=== PATIENT | male | born 1970 | race Caucasian/White ===

== ENCOUNTER 2017-03-02 15:22 | Emergency (ER) | payer OTHER ==
[~2017-03-02] VITALS: Ht 172.7 cm; Wt 93.2 kg
[2017-03-02 16:55] VITALS: BP 167/100
[2017-03-02] MEDS ORDERED: IBUP-1022 PO (16:55)
--- NOTE | 2017-03-03 08:38 | REP ---
LEFT KNEE, FIVE VIEWS: HISTORY: Injury. There is no acute fracture or dislocation. The joint spaces are normal in appearance. IMPRESSION: There is no acute fracture or dislocation. Signed by Timbo Eubanks MD 03/03/2017 08:50 A
[2017-04-16] MEDS ORDERED: ATEN50TA2 PO (11:06)
[2017-04-16] MEDS ORDERED: ATOR1TAB21 PO (11:06)
[2017-04-16] MEDS ORDERED: LISI-538 PO (11:06)
== END 2017-03-02 17:09 | disposition home or self-care (01) ==
LOC: M ED 15:22
DX: M23.92 Unspecified internal derangement of left knee (principal); X50.9XXA Other and unspecified overexertion or strenuous movements or postures, initial encounter; Y92.59 Other trade areas as the place of occurrence of the external cause; Y93.89 Activity, other specified; Y99.8 Other external cause status; F17.210 Nicotine dependence, cigarettes, uncomplicated

== ENCOUNTER 2017-04-23 09:17 | Day surgery (SDC) | payer OTHER ==
[~2017-04-23] VITALS: Ht 172.7 cm; Wt 85.3 kg
[~2017-04-23 09:17] MED LIST: ATEN50TA2 PO; ATOR1TAB21 PO; IBUP-1022 PO; LIDOCAINE 1% MDV 20ML VIAL SQ PRN; LISI-538 PO; LR 1,000 ML IV ONE
[2017-04-23] MEDS ORDERED: fentaNYL 100 MCG/2 ML INJECTION (J3010) As Ordered ONE (10:37)
[2017-04-23] MEDS ORDERED: MIDAZOLAM INJ 2 MG/2 ML VIAL (J2250) As Ordered ONE ×2 (10:37→11:32)
[2017-04-23] MEDS: fentaNYL 100 MCG/2 ML INJECTION (J3010) IV PRN ×6 (10:46→18:48)
[2017-04-23] MEDS: MIDAZOLAM INJ 2 MG/2 ML VIAL (J2250) IV PRN ×2 (10:46→10:55)
[2017-04-23] MEDS ORDERED: BUPIVACAINE HCL 0.5% 10 ML VIAL As Ordered ONE (11:09)
[2017-04-23] MEDS ORDERED: fentaNYL 250 MCG/5 ML INJECTION (J3010) As Ordered ONE (11:32)
[2017-04-23] MEDS ORDERED: DESFLURANE 240 ML INHALANT As Ordered ONE (13:06)
[2017-04-23] MEDS ORDERED: LIDOCAINE 2% INJ 100 MG/5 ML SDV (FOR ANES.) As Ordered ONE (13:06)
[2017-04-23] MEDS ORDERED: PROPOFOL 200 MG/20 ML VIAL As Ordered ONE (13:06)
[2017-04-23] MEDS ORDERED: ePHEDrine SULFATE 25 MG/5 ML(5MG/ML) SYRINGE As Ordered ONE (13:06)
[2017-04-23] MEDS ORDERED: METOCLOPRAMIDE INJ 10MG/2ML VIAL (J2765) As Ordered ONE (13:07)
[2017-04-23] MEDS ORDERED: NEOSTIGMINE 10 MG/10 ML VIAL (J2710) As Ordered ONE (13:07)
[2017-04-23] MEDS ORDERED: KETOROLAC 60 MG/2 ML VIAL (J1885) As Ordered ONE (13:07)
[2017-04-23] MEDS ORDERED: ONDANSETRON 4MG/2ML VIAL (J2405) As Ordered ONE (13:07)
[2017-04-23] MEDS ORDERED: GLYCOPYRROLATE INJ 0.2 MG/ML 2 ML VIAL As Ordered ONE (13:07)
[2017-04-23] MEDS ORDERED: HYDROmorphone HCL 2 MG/ML 1ML VIAL (J1170) As Ordered ONE (13:18)
[2017-04-23] MEDS ORDERED: ROCURONIUM BROMIDE 50 MG/5 ML VIAL As Ordered ONE (13:20)
[2017-04-23] MEDS ORDERED: dexameTHASONE 4 MG/ML 1ML VIAL (J1100) As Ordered ONE (15:12)
[2017-04-23] MEDS ORDERED: ceFAZolin 2 GM/D5W 50 ML IV BAG (J0690) As Ordered ONE (15:47)
[2017-04-23] MEDS ORDERED: ONDANSETRON 4MG/2ML VIAL (J2405) IV PRN (18:15)
[2017-04-23] MEDS ORDERED: LR 1,000 ML IV SCH (18:15)
[2017-04-23] MEDS ORDERED: MEPERIDINE INJ 25 MG/ML VIAL (J2175) IV PRN (18:15)
[2017-04-23] MEDS ORDERED: PERCOCET 5MG/325MG TAB PO PRN (18:15)
[2017-04-23] MEDS ORDERED: METOCLOPRAMIDE INJ 10MG/2ML VIAL (J2765) IV PRN (18:15)
--- NOTE | 2017-04-23 18:19 | REP ---
Left knee series: 26 views. History: Intraoperative radiographs. 22 seconds of fluoroscopy time is reported. Findings: A sequence of 26 last image hold fluoroscopic spot radiographs of the left knee document metallic anchor placement in the distal femur and proximal tibia medially. Signed by Sergo Peterson MD 04/23/2017 07:47 P
[2017-04-23] MEDS ORDERED: MORPHINE 15 MG SA TAB PO ONE (19:00)
[2017-04-23 20:20] VITALS: BP 161/90
--- NOTE | 2017-05-02 11:02 | RO ---
DATE OF PROCEDURE: 04/23/2017 PREOPERATIVE DIAGNOSES: 1. Left knee anterior cruciate ligament rupture. 2. Left knee medial collateral ligament tear. 3. Left knee possible medial meniscus tear. POSTOPERATIVE DIAGNOSES: 1. Left knee anterior cruciate ligament rupture. 2. Left knee medial collateral ligament tear, grade 3. PROCEDURE: 1. Left knee arthroscopy with arthroscopic-assisted anterior cruciate ligament reconstruction using bone-patellar tendon-bone autograft. 2. Left knee medial collateral ligament reconstruction using Achilles tendon allograft. SURGEON: Dr. James Parker CHARGE MASTER SPECIALIST: Dr. Yolanda Nair SECOND TABLE GAMES FLOOR SUPERVISOR: BINU Garcia ANESTHESIA: General with preoperative nerve block. INTRAVENOUS (IV) FLUIDS: Lactated Ringer's. ESTIMATED BLOOD LOSS: 100 mL. IMPLANTS: Arthrex 7 x 23 mm PEEK interference screw times one, 8 x 28 PEEK interference screw in the tibia times one, 7 x 23 mm PEEK interference screw in the medial femoral condyle, and a 20 mm Mitek spiked washer titanium and a 4.5 mm fully threaded cortical Synthes screw. CLOSURE: Nylon. 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 His exam was consistent with both a complete tear of the anterior cruciate ligament (ACL) and a grade 3 medial collateral ligament (MCL) tear. MRI confirmed those injuries and suggestive of a medial meniscus capsule separation. He was treated nonoperatively initially in a hinged knee brace to allow his MCL to try to heal in to avoid needing that fixed. Unfortunately, his MCL did not fully heal and he actually had grade 2+ laxity with laxity at 0 and 30 degrees 8 weeks out from injury. We had discussed multiple times surgery for this injury for ACL reconstruction, including graft options and fixation. We agreed to bone-patellar tendon-bone (BTB) autograft for the ACL and, if necessary, to reconstruct MCL and Achilles allograft. The risks and benefits of surgery were discussed, and consent was obtained. DESCRIPTION OF PROCEDURE: The patient was identified in the preoperative holding area and the left leg signed by myself. He had a preoperative nerve block by anesthesia. He was brought to the operating room and placed supine on a well-padded operating room (OR) table. General anesthesia induced without complication. Examination under anesthesia revealed range of motion from 0 to 135 degrees. He had laxity at 0 and 30 degrees with valgus stress with a poor end point at 30 degrees. He had a grade 2B Arabella. Pivot shift was deferred. Stable to varus stress, and negative posterior drawer. Bump was placed under the left hip, a sandbag taped to the end of the table. Post applied to the side of the OR table for arthroscopy, and a well-padded tourniquet applied to the thigh. He received appropriate IV antibiotics within 1 hour of incision. The left leg was then prepped and draped in a normal sterile fashion with the entire leg and toes prepped sterilely. Prior to incision, time-out was performed, in which myself and all OR staff confirmed the patient's name, medical record number, date of , and the correct side, site, and procedure. The left leg was exsanguinated with an Esmarch bandage and the tourniquet inflated to 250 mmHg. A longitudinal midline incision was made with a #15 blade from the distal fourth of the patella down past the tibial tubercle. Full-thickness flap down to the peritenon with a knife. Deep knife was used to create a rent in the peritenon, and then the peritenon was carefully elevated off of the patellar tendon to protect for later repair. The deep knife was used to harvest the central third of the patellar tendon with a roughly 10-11 mm width tendon. Bone blocks at the patella and tibia were harvested with the oscillating saw and osteotomes. Two drill holes placed in each bone block. Bone blocks were then sized on the back table, and excess bone was saved for later bone graft. FiberWire sutures were placed, two in each bone block. Graft was protected on the back table in a moist sponge. Dr. Nair was present for the entire procedure and participated in all essential portions of the procedure. Patellar tendon was closed with interrupted #0 Vicryl sutures with the knee in 40 degrees of flexion. I then proceeded with arthroscopy, lateral portal made with a #11 blade through the harvest incision, and diagnostic arthroscopy carried out. Minimal fraying of the patellar and trochlea and no significant degenerative change. No loose bodies. There was a complete rupture of the ACL with an empty notch sign. Medial and lateral compartments were then inspected, and there were no meniscus tears. The meniscus did not displace into the joint with suction. Intact chondral surfaces of both the medial and lateral compartments; no chondroplasty necessary. An anteromedial portal was made and, on probing, there were no meniscus tears. I then used the shaver to remove the torn ACL fibers, leaving some fibers on the femur and tibia to guide tunnel placement. An accessory anteromedial portal was created through the harvest incision to give the appropriate angle to drill for the femoral tunnel. An [id number] anteromedial guide was placed through the accessory medial portal, and the knee was hyperflexed. The guidewire was advanced out the lateral femoral condyle. The low profile 10 mm Leonardo reamer was used to drill a 25 mm socket over the guidewire. Suction was used to then remove all bony debris. There was a 1 mm back wall, and this tunnel was placed at the 2-o'clock position. Next, attention was turned to the tibial tunnel with the drill guide used to place a guidewire through the [place] fibers of the ACL 9 mm anterior to the intermeniscal ligament. A 10.5 mm Leonardo reamer was first used, then a 10 mm solid reamer due to the size of the bone block. Bony debris was removed with a shaver and the meniscal punch used to remove loose fragments at the tibial aperture. I should have mentioned that a passing suture was placed up the femoral tunnel. This was then retrieved out the tibial tunnel. The graft was then passed into the joint and the bone block docked into the femoral tunnel. Nitinol wire was placed, and then a 7 x 23 mm PEEK screw was advanced over the nitinol wire, placing the bone block posterior and inferior within the tunnel. There was excellent fixation. Attention was then turned to MCL reconstruction. MRI had shown that the entire MCL was torn as opposed to it being torn off the insertion or origin, making a repair inadequate. I made a 3 cm incision centered over the medial epicondyle and then dissection down to the medial epicondyle. A proposed drill hole was localized on large C-arm fluoroscopy just proximal and posterior to the medial epicondyle. Guide pin was advanced. The Beath pin was advanced. The Achilles allograft had been precut to a size 10 mm bone block, and two drill holes had already been placed through that. My second assist had placed a running locking FiberWire suture through the soft tissue portion of the graft and placed that under tension. The 10.5 Leonardo reamer was used to create a socket in the medial femoral condyle. Irrigation to remove bony debris. The FiberWire sutures through the bone block were then passed through the Beath pin, which was retrieved out laterally, which docked the graft nicely. I then placed a PEEK interference screw from Arthrex over a nitinol wire, and there was excellent fixation. I should have mentioned, prior to positioning the graft, a K-wire had been placed at the tibial insertion of the MCL and a suture was passed around the Beath pin in the medial femoral condyle and looped around a separate incision at the pes. This was used to help confirm the isometric position. At this point, femoral fixation of both the ACL and MCL were complete. I then turned attention to the tibial ACL fixation. The leg was placed into full extension and a nitinol wire placed between the bone block and tunnel. An 8 x 28 mm Arthrex PEEK screw was then placed over the nitinol wire. A large bump was place behind the distal femur, and my assistant women's soccer coach applied an aggressive posterior drawer as I applied counter traction on the tibial bone block sutures and advanced the screw. There was excellent fixation. There was a grade 1A Arabella with the graft fully seated. Attention was then turned to tibial MCL fixation. Isometry was again checked at the proposed tibial insertion. The sartorius fascia was incised just inferior to the semitendinosus, and the MCL fibers on the tibia were exposed. Isometry was then checked again with the graft. The proposed drill site was then marked with cautery, and soft tissue was debrided to improve fixation. The hamstring tendons were not released. I initially attempted to use a [place] [employer] 20 mm spiked washer, but the screws were not of the appropriate length. Mitek [id number] screws were available but had poor fixation. I ultimately used a Mitek 20 mm titanium spiked washer and a 4.5 mm fully threaded cortical Synthes screw from the large fragment set. Screw and Ba washer pierced the soft tissue portion of the Achilles tendon graft. My two assistants applied a varus stress to the knee with it in 20 degrees of flexion and then the counter tension on the sutures and the graft, and the screw was advanced by hand. There was excellent fixation. This was bicortical fixation in the tibia. The MCL graft was under excellent tension. Very gentle testing at 0 and 30 degrees with valgus stress showed excellent fixation with no opening. All incisions were then extensively irrigated with normal saline. I should have mentioned the tourniquet was let down at an hour and 29 minutes. Hemostasis with electrocautery. Antibiotics had been appropriately redosed. Incisions were closed with #2-0 Vicryl for the peritenon, #2-0 Vicryl subcuticular, and a running #3-0 nylon for the ACL incision. Medial incisions closed with #2-0 Vicryl and running nylon. I should mention that the fascia near the femoral attachment of the graft was repaired with buried #0 Vicryl suture. All counts correct times two, bulky sterile bandage applied, and then patient was carefully placed into a long leg hinged knee brace locked in extension. He was transferred to the postanesthesia care unit (PACU) in stable condition. Excellent palpable pulses. He was given oral prescription to complete 24 hours of antibiotic prophylaxis, full-dose aspirin for deep venous thrombosis (DVT) prophylaxis, and appropriate pain medications. Followup in 2 weeks for suture removal.
== END 2017-04-23 20:35 | disposition home or self-care (01) ==
LOC: M SDC 09:17
PROVIDERS: ATTEND Orthopaedic Surgery
DX: S83.512A Sprain of anterior cruciate ligament of left knee, initial encounter (principal); S83.412A Sprain of medial collateral ligament of left knee, initial encounter; X58.XXXA Exposure to other specified factors, initial encounter; Y92.89 Other specified places as the place of occurrence of the external cause; Y93.9 Activity, unspecified; Y99.9 Unspecified external cause status; I10 Essential (primary) hypertension; E78.5 Hyperlipidemia, unspecified; Z86.73 Personal history of transient ischemic attack (TIA), and cerebral infarction without residual deficits; F17.210 Nicotine dependence, cigarettes, uncomplicated; Z79.899 Other long term (current) drug therapy
CPT/HCPCS: 27405; 29888; 64425; 73564; C1713; C1762; J0690; J1100; J1170; J1885; J2250; J2405; J2710; J2765; J3010

== ENCOUNTER 2017-10-19 10:26 | Inpatient (IN) | payer BC, OTHER ==
[2017-10-19] MEDS: THIAMINE 100 MG TAB PO ×2 (09:00→20:56)
[2017-10-19 11:15] LABS: BASO % 0.2 % (0.0-1.0); HEMATOCRIT 37.6 % (42.0-52.0); HEMOGLOBIN 13.4 g/dl (13.5-17.5); IMMATURE GRANULOCYTE % 0.8 % (0-3.0); LYMPH # 0.9 10^3/uL (1.5-4.5); LYMPH % 4.8 % (24.0-44.0); MEAN CORPUSCULAR HEMOGLOBIN 35.4 pg (27.0-33.0); MEAN CORPUSCULAR HGB CONC 35.6 g/dl (32.0-36.5); MEAN CORPUSCULAR VOLUME 99.2 fl (80.0-96.0); MONO # 0.9 10^3/uL (0.0-0.8); MONO % 5.1 % (0.0-5.0); NEUTROPHILS # 16.6 10^3/uL (1.8-7.7); NEUTROPHILS % 89.1 % (36.0-66.0); PLATELET COUNT, AUTOMATED 212 10^3/uL (150-450); RED BLOOD COUNT 3.79 10^6/uL (4.30-6.10); RED CELL DISTRIBUTION WIDTH 14.7 % (11.5-14.5); WHITE BLOOD COUNT 18.6 10^3/uL (4.0-10.0)
[2017-10-19] MEDS: ONDANSETRON 4MG/2ML VIAL (J2405) IV (11:33)
[2017-10-19 11:35] LABS: ALBUMIN/GLOBULIN RATIO 0.68 (1.00-1.93); ALKALINE PHOSPHATASE 183 U/L (45-117); ALT/SGPT 55 U/L (12-78); AST/SGOT 105 U/L (7-37); BILIRUBIN,TOTAL 2.1 MG/DL (0.2-1.0); BLOOD UREA NITROGEN 12 MG/DL (7-18); CALCIUM LEVEL 8.8 MG/DL (8.5-10.1); CARBON DIOXIDE LEVEL 30 MEQ/L (21-32); CHLORIDE LEVEL 78 MEQ/L (98-107); CREATININE FOR GFR 0.74 MG/DL (0.70-1.30); GLOMERULAR FILTRATION RATE > 60.0 (>60); GLUCOSE, FASTING 181 MG/DL (70-100); LIPASE 2962 U/L (73-393); TOTAL PROTEIN 7.4 GM/DL (6.4-8.2)
[2017-10-19 11:43] LABS: ANION GAP 15 MEQ/L (8-16); SODIUM LEVEL 123 MEQ/L (136-145)
[2017-10-19 11:47] LABS: POTASSIUM SERUM 2.6 MEQ/L (3.5-5.1)
[2017-10-19] MEDS ORDERED: ISOVUE-370 76% 100ML VIAL (Q9967) As Ordered (12:04)
[2017-10-19] MEDS: NS 1,000 ML IV (12:15)
[2017-10-19] MEDS: KETOROLAC 30 MG/ML VIAL (J1885) IV (12:37)
[2017-10-19] MEDS: KCL 10MEQ/100ML SWI (KRUN) 10 MEQ in APPROPRIATE DILUENT 1 EA IV ×4 (12:37→22:21)
[2017-10-19 13:09] LABS: LACTIC ACID SEPSIS PROTOCOL 2.9 MMOL/L (0.4-2.0)
[2017-10-19] MEDS ORDERED: ONDANSETRON 4MG/2ML VIAL (J2405) IV (16:15)
[2017-10-19] MEDS ORDERED: LORazepam 2 MG/ML VIAL (J2060) IV (16:15)
[2017-10-19] MEDS ORDERED: ACETAMINOPHEN TAB 650MG DOSE (2X325MG) PO (16:15)
[2017-10-19] MEDS ORDERED: MORPHINE 4 MG/ML 1ML VIAL/SYRINGE (J2270) IV ×2 (16:15→21:00)
[2017-10-19] MEDS: OXAZEPAM 15 MG CAP PO ×2 (16:50→21:00)
[2017-10-19] MEDS: PERCOCET 5MG/325MG TAB PO (17:07)
[2017-10-19 17:26] LABS: MAGNESIUM LEVEL 1.6 MG/DL (1.8-2.4)
[2017-10-19 17:26] LABS: SODIUM LEVEL 128 MEQ/L (136-145)
[2017-10-19 17:28] LABS: CHOLESTEROL LEVEL 88 MG/DL (<200); HDL CHOLESTEROL 25 MG/DL (>40); LDL CHOLESTEROL 28.4 MG/DL (<100); MAGNESIUM LEVEL 1.5 MG/DL (1.8-2.4); NON-HDL-C 63 MG/DL; PHOSPHORUS LEVEL 3.3 MG/DL (2.5-4.9); TRIGLYCERIDES LEVEL 173 MG/DL (<150)
[2017-10-19 17:43] LABS: POTASSIUM SERUM 2.6 MEQ/L (3.5-5.1)
[2017-10-19] MEDS: POTASSIUM CHLORIDE 10 MEQ SR TABLET PO (18:55)
[2017-10-19] MEDS: NICOTINE POLACRILEX 2 MG GUM PO (18:56)
[2017-10-19] MEDS: D5W/0.45% SODIUM CHLORIDE 1,000 ML IV (18:56)
[2017-10-19] MEDS: ENOXAPARIN 40 MG/0.4 ML SYRINGE (J1650) SC (21:00)
[2017-10-19] MEDS: ATENOLOL 50 MG TAB PO (21:00)
[2017-10-19 21:44] LABS: SODIUM LEVEL 130 MEQ/L (136-145)
[2017-10-19] MEDS: MORPHINE 4 MG/ML 1ML VIAL/SYRINGE (J2270) IV (22:20)
[2017-10-20] MEDS: KCL 10MEQ/100ML SWI (KRUN) 10 MEQ in APPROPRIATE DILUENT 1 EA IV (01:02)
[2017-10-20] MEDS: MAG SULF 1GM/100ML (MAG RUN) 1 GM in APPROPRIATE DILUENT 1 EA IV ×3 (01:02→03:43)
[2017-10-20 01:20] LABS: POTASSIUM SERUM 3.2 MEQ/L (3.5-5.1)
[2017-10-20 04:38] LABS: HEMATOCRIT 32.7 % (42.0-52.0); HEMOGLOBIN 11.9 g/dl (13.5-17.5); MEAN CORPUSCULAR HEMOGLOBIN 36.1 pg (27.0-33.0); MEAN CORPUSCULAR HGB CONC 36.4 g/dl (32.0-36.5); MEAN CORPUSCULAR VOLUME 99.1 fl (80.0-96.0); PLATELET COUNT, AUTOMATED 138 10^3/uL (150-450); RED CELL DISTRIBUTION WIDTH 14.6 % (11.5-14.5); WHITE BLOOD COUNT 10.5 10^3/uL (4.0-10.0)
[2017-10-20 05:02] LABS: ALBUMIN 2.4 GM/DL (3.2-5.2); ALBUMIN/GLOBULIN RATIO 0.63 (1.00-1.93); ALKALINE PHOSPHATASE 143 U/L (45-117); ALT/SGPT 39 U/L (12-78); ANION GAP 9 MEQ/L (8-16); AST/SGOT 78 U/L (7-37); BILIRUBIN,TOTAL 1.5 MG/DL (0.2-1.0); BLOOD UREA NITROGEN 9 MG/DL (7-18); CARBON DIOXIDE LEVEL 32 MEQ/L (21-32); CHLORIDE LEVEL 89 MEQ/L (98-107); CREATININE FOR GFR 0.48 MG/DL (0.70-1.30); GLOMERULAR FILTRATION RATE > 60.0 (>60); GLUCOSE, FASTING 171 MG/DL (70-100); MAGNESIUM LEVEL 2.3 MG/DL (1.8-2.4); POTASSIUM SERUM 3.1 MEQ/L (3.5-5.1); SODIUM LEVEL 130 MEQ/L (136-145); TOTAL PROTEIN 6.2 GM/DL (6.4-8.2)
[2017-10-20] MEDS: OXAZEPAM 15 MG CAP PO ×3 (05:36→22:11)
[2017-10-20 06:40] LABS: LIPASE 1293 U/L (73-393)
[2017-10-20] MEDS: POTASSIUM CHLORIDE 10 MEQ SR TABLET PO (06:56)
[2017-10-20] MEDS ORDERED: oxyCODONE 5MG TAB PO (08:45)
[2017-10-20] MEDS: oxyCODONE 5MG TAB PO (08:58)
[2017-10-20] MEDS: MULTIVITAMINS/MINERALS THERAP 1 TAB PO (08:58)
[2017-10-20] MEDS: FOLIC ACID 1 MG TAB PO (08:58)
[2017-10-20] MEDS: THIAMINE 100 MG TAB PO ×2 (08:58→20:12)
[2017-10-20] MEDS: PANTOPRAZOLE 40MG INJ (PROTONIX) (C9113) IV ×2 (08:59→20:11)
[2017-10-20] MEDS: KETOROLAC 30 MG/ML VIAL (J1885) IV (09:00)
[2017-10-20] MEDS: NS 1,000 ML IV ×2 (09:01→19:54)
[2017-10-20] MEDS: LIDOCAINE 5% (LIDODERM) PATCH TD (09:02)
[2017-10-20 11:06] LABS: SODIUM LEVEL 131 MEQ/L (136-145)
[2017-10-20] MEDS: NICOTINE POLACRILEX 2 MG GUM PO (13:53)
[2017-10-20 17:27] LABS: SODIUM LEVEL 132 MEQ/L (136-145)
[2017-10-20] MEDS: **NOTE PATIENT COMMENT** MISC XX (20:12)
[2017-10-20] MEDS: ENOXAPARIN 40 MG/0.4 ML SYRINGE (J1650) SC (20:12)
[2017-10-20] MEDS: MORPHINE 4 MG/ML 1ML VIAL/SYRINGE (J2270) IV (22:13)
[2017-10-21] MEDS: OXAZEPAM 15 MG CAP PO ×3 (05:43→21:27)
[2017-10-21 06:29] LABS: HEMATOCRIT 31.1 % (42.0-52.0); MEAN CORPUSCULAR HEMOGLOBIN 36.2 pg (27.0-33.0); MEAN CORPUSCULAR HGB CONC 35.4 g/dl (32.0-36.5); MEAN CORPUSCULAR VOLUME 102.3 fl (80.0-96.0); PLATELET COUNT, AUTOMATED 153 10^3/uL (150-450); RED BLOOD COUNT 3.04 10^6/uL (4.30-6.10); RED CELL DISTRIBUTION WIDTH 14.7 % (11.5-14.5); WHITE BLOOD COUNT 6.6 10^3/uL (4.0-10.0)
[2017-10-21 07:01] LABS: ALBUMIN/GLOBULIN RATIO 0.59 (1.00-1.93); ALKALINE PHOSPHATASE 163 U/L (45-117); ALT/SGPT 54 U/L (12-78); ANION GAP 7 MEQ/L (8-16); AST/SGOT 118 U/L (7-37); BILIRUBIN,TOTAL 1.9 MG/DL (0.2-1.0); BLOOD UREA NITROGEN 7 MG/DL (7-18); CALCIUM LEVEL 7.9 MG/DL (8.5-10.1); CARBON DIOXIDE LEVEL 30 MEQ/L (21-32); CHLORIDE LEVEL 99 MEQ/L (98-107); CREATININE FOR GFR 0.45 MG/DL (0.70-1.30); GLOMERULAR FILTRATION RATE > 60.0 (>60); GLUCOSE, FASTING 135 MG/DL (70-100); LIPASE 910 U/L (73-393); POTASSIUM SERUM 3.1 MEQ/L (3.5-5.1); SODIUM LEVEL 136 MEQ/L (136-145); TOTAL PROTEIN 5.4 GM/DL (6.4-8.2)
[2017-10-21] MEDS: PANTOPRAZOLE 40MG INJ (PROTONIX) (C9113) IV ×2 (09:53→21:26)
[2017-10-21] MEDS: LIDOCAINE 5% (LIDODERM) PATCH TD (09:54)
[2017-10-21] MEDS: THIAMINE 100 MG TAB PO ×2 (09:54→21:26)
[2017-10-21] MEDS: MULTIVITAMINS/MINERALS THERAP 1 TAB PO (09:54)
[2017-10-21] MEDS: FOLIC ACID 1 MG TAB PO (09:54)
[2017-10-21] MEDS: POTASSIUM CHLORIDE 10 MEQ SR TABLET PO (12:15)
[2017-10-21] MEDS: ENOXAPARIN 40 MG/0.4 ML SYRINGE (J1650) SC (21:27)
[2017-10-21] MEDS: **NOTE PATIENT COMMENT** MISC XX (21:27)
[2017-10-22] MEDS: OXAZEPAM 15 MG CAP PO (05:43)
[2017-10-22 06:12] LABS: HEMOGLOBIN 11.6 g/dl (13.5-17.5); MEAN CORPUSCULAR HEMOGLOBIN 36.4 pg (27.0-33.0); MEAN CORPUSCULAR HGB CONC 35.2 g/dl (32.0-36.5); MEAN CORPUSCULAR VOLUME 103.4 fl (80.0-96.0); PLATELET COUNT, AUTOMATED 166 10^3/uL (150-450); RED BLOOD COUNT 3.19 10^6/uL (4.30-6.10); RED CELL DISTRIBUTION WIDTH 14.6 % (11.5-14.5); WHITE BLOOD COUNT 6.1 10^3/uL (4.0-10.0)
[2017-10-22 06:36] LABS: ALBUMIN 1.9 GM/DL (3.2-5.2); ALKALINE PHOSPHATASE 231 U/L (45-117); ALT/SGPT 100 U/L (12-78); ANION GAP 4 MEQ/L (8-16); AST/SGOT 189 U/L (7-37); BILIRUBIN,TOTAL 1.8 MG/DL (0.2-1.0); BLOOD UREA NITROGEN 8 MG/DL (7-18); CALCIUM LEVEL 7.7 MG/DL (8.5-10.1); CARBON DIOXIDE LEVEL 33 MEQ/L (21-32); CHLORIDE LEVEL 100 MEQ/L (98-107); CREATININE FOR GFR 0.62 MG/DL (0.70-1.30); GLOMERULAR FILTRATION RATE > 60.0 (>60); GLUCOSE, FASTING 160 MG/DL (70-100); LIPASE 1412 U/L (73-393); POTASSIUM SERUM 3.5 MEQ/L (3.5-5.1); SODIUM LEVEL 137 MEQ/L (136-145); TOTAL PROTEIN 5.7 GM/DL (6.4-8.2)
[2017-10-22] MEDS: FOLIC ACID 1 MG TAB PO (08:10)
[2017-10-22] MEDS: MULTIVITAMINS/MINERALS THERAP 1 TAB PO (08:10)
[2017-10-22] MEDS: PANTOPRAZOLE 40MG INJ (PROTONIX) (C9113) IV ×2 (08:10→20:23)
[2017-10-22] MEDS: LIDOCAINE 5% (LIDODERM) PATCH TD (08:10)
[2017-10-22] MEDS: OXAZEPAM 10 MG CAP PO (20:23)
[2017-10-22] MEDS: ENOXAPARIN 40 MG/0.4 ML SYRINGE (J1650) SC (20:23)
[2017-10-22] MEDS: **NOTE PATIENT COMMENT** MISC XX (21:00)
[2017-10-23 06:02] LABS: HEMATOCRIT 32.5 % (42.0-52.0); HEMOGLOBIN 11.2 g/dl (13.5-17.5); MEAN CORPUSCULAR HEMOGLOBIN 35.6 pg (27.0-33.0); MEAN CORPUSCULAR HGB CONC 34.5 g/dl (32.0-36.5); MEAN CORPUSCULAR VOLUME 103.2 fl (80.0-96.0); PLATELET COUNT, AUTOMATED 195 10^3/uL (150-450); RED BLOOD COUNT 3.15 10^6/uL (4.30-6.10); RED CELL DISTRIBUTION WIDTH 14.8 % (11.5-14.5); WHITE BLOOD COUNT 7.1 10^3/uL (4.0-10.0)
[2017-10-23 06:18] LABS: ALBUMIN 1.9 GM/DL (3.2-5.2); ALBUMIN/GLOBULIN RATIO 0.51 (1.00-1.93); ALKALINE PHOSPHATASE 237 U/L (45-117); ALT/SGPT 103 U/L (12-78); ANION GAP 6 MEQ/L (8-16); AST/SGOT 151 U/L (7-37); BILIRUBIN,TOTAL 1.6 MG/DL (0.2-1.0); BLOOD UREA NITROGEN 8 MG/DL (7-18); CALCIUM LEVEL 7.8 MG/DL (8.5-10.1); CARBON DIOXIDE LEVEL 30 MEQ/L (21-32); CHLORIDE LEVEL 101 MEQ/L (98-107); CREATININE FOR GFR 0.54 MG/DL (0.70-1.30); GLOMERULAR FILTRATION RATE > 60.0 (>60); GLUCOSE, FASTING 131 MG/DL (70-100); LIPASE 1363 U/L (73-393); POTASSIUM SERUM 3.3 MEQ/L (3.5-5.1); SODIUM LEVEL 137 MEQ/L (136-145); TOTAL PROTEIN 5.6 GM/DL (6.4-8.2)
[2017-10-23] MEDS: LIDOCAINE 5% (LIDODERM) PATCH TD (07:50)
[2017-10-23] MEDS: MULTIVITAMINS/MINERALS THERAP 1 TAB PO (07:50)
[2017-10-23] MEDS: POTASSIUM CHLORIDE 10 MEQ SR TABLET PO (07:50)
[2017-10-23] MEDS: THIAMINE 100 MG TAB PO (07:50)
[2017-10-23] MEDS: OXAZEPAM 10 MG CAP PO (07:50)
[2017-10-23] MEDS: FOLIC ACID 1 MG TAB PO (07:50)
== END 2017-10-23 11:05 | disposition home or self-care (01) | DRG 282 ==
LOC: M ED 10:26 → M ED INP 16:18 → M MSPAV 17:30
DX: K85.20 Alcohol induced acute pancreatitis without necrosis or infection (principal); E87.2 Acidosis; K70.10 Alcoholic hepatitis without ascites; E87.1 Hypo-osmolality and hyponatremia; F17.210 Nicotine dependence, cigarettes, uncomplicated; E87.6 Hypokalemia; M54.6 Pain in thoracic spine; F10.20 Alcohol dependence, uncomplicated; I10 Essential (primary) hypertension; E78.5 Hyperlipidemia, unspecified; Z79.899 Other long term (current) drug therapy

== ENCOUNTER → 2017-10-19 | Outpatient (CLI) | payer BC, OTHER ==
[2017-10-19 11:31] LABS: BASO % 0.2 % (0.0-1.0); HEMATOCRIT 39.2 % (42.0-52.0); HEMOGLOBIN 13.9 g/dl (13.5-17.5); IMMATURE GRANULOCYTE % 1.1 % (0-3.0); LYMPH # 0.7 10^3/uL (1.5-4.5); LYMPH % 4.1 % (24.0-44.0); MEAN CORPUSCULAR HEMOGLOBIN 35.3 pg (27.0-33.0); MEAN CORPUSCULAR HGB CONC 35.5 g/dl (32.0-36.5); MEAN CORPUSCULAR VOLUME 99.5 fl (80.0-96.0); MONO # 0.8 10^3/uL (0.0-0.8); MONO % 4.5 % (0.0-5.0); NEUTROPHILS # 15.2 10^3/uL (1.8-7.7); NEUTROPHILS % 90.1 % (36.0-66.0); PLATELET COUNT, AUTOMATED 206 10^3/uL (150-450); RED BLOOD COUNT 3.94 10^6/uL (4.30-6.10); RED CELL DISTRIBUTION WIDTH 14.9 % (11.5-14.5); WHITE BLOOD COUNT 16.9 10^3/uL (4.0-10.0)
[2017-10-19 11:41] LABS: INR 0.94; PROTHROMBIN TIME 12.6 SECONDS (12.4-14.5)
[2017-10-19 11:43] LABS: ALBUMIN 3.1 GM/DL (3.2-5.2); ALBUMIN/GLOBULIN RATIO 0.82 (1.00-1.93); ALKALINE PHOSPHATASE 194 U/L (45-117); ALT/SGPT 61 U/L (12-78); AMYLASE 117 U/L (25-115); ANION GAP 14 MEQ/L (8-16); AST/SGOT 115 U/L (7-37); BILIRUBIN,TOTAL 2.2 MG/DL (0.2-1.0); BLOOD UREA NITROGEN 12 MG/DL (7-18); CALCIUM LEVEL 8.8 MG/DL (8.5-10.1); CARBON DIOXIDE LEVEL 32 MEQ/L (21-32); CHLORIDE LEVEL 78 MEQ/L (98-107); CREATININE FOR GFR 0.85 MG/DL (0.70-1.30); GLOMERULAR FILTRATION RATE > 60.0 (>60); GLUCOSE, FASTING 178 MG/DL (70-100); LIPASE 3244 U/L (73-393); POTASSIUM SERUM 2.6 MEQ/L (3.5-5.1); SODIUM LEVEL 124 MEQ/L (136-145); TOTAL PROTEIN 6.9 GM/DL (6.4-8.2)
[2017-10-19 11:58] LABS: GAMMA GLUTAMYLTRANSPEPTIDASE 1414 U/L (15-85)
[2017-10-21 09:53] LABS: HEPATITIS B SURFACE ANTIGEN NEGATIVE (NEGATIVE)
[2017-10-21 10:20] LABS: HEPATITIS B CORE ANTIBODY IGM NEGATIVE (NEGATIVE); HEPATITIS C VIRUS ABY INDEX < 0.0 INDEX (<0.8)
[2017-10-21 10:22] LABS: HEPATITIS A ANTIBODY IGM NEGATIVE (NEGATIVE)
== END ==
LOC: M WUC 09:25
DX: R11.10 Vomiting, unspecified (principal); R10.84 Generalized abdominal pain
CPT/HCPCS: 82150

== ENCOUNTER 2018-03-17 10:51 | Inpatient (IN) | payer BC, OTHER ==
[2018-03-17] MEDS ORDERED: ISOVUE-370 76% 100ML VIAL (Q9967) As Ordered (11:09)
[2018-03-17] MEDS: NS 1,000 ML IV ×2 (11:10→12:30)
[2018-03-17 11:18] LABS: HEMATOCRIT 35.3 % (42.0-52.0); MEAN CORPUSCULAR HEMOGLOBIN 35.8 pg (27.0-33.0); MEAN CORPUSCULAR HGB CONC 31.2 g/dl (32.0-36.5); PLATELET COUNT, AUTOMATED 216 10^3/uL (150-450); RED BLOOD COUNT 3.07 10^6/uL (4.30-6.10); RED CELL DISTRIBUTION WIDTH 15.7 % (11.5-14.5); WHITE BLOOD COUNT 15.6 10^3/uL (4.0-10.0)
[2018-03-17 11:20] LABS: ADD MANUAL DIFFER YES; DIFF SLIDE NUMBER 223; POSITIVE MORPH POS FLAG
[2018-03-17 11:34] LABS: IMMEDIATE SPIN CROSSMATCH 1 2
[2018-03-17] MEDS: PANTOPRAZOLE 40MG INJ (PROTONIX) (C9113) IV ×2 (11:37→21:41)
[2018-03-17] MEDS: OCTREOTIDE ACETATE 1,200 MCG in NS 238.8 ML IV (11:57)
[2018-03-17] MEDS ORDERED: DEXTROSE 50% 50 ML SYRINGE As Ordered (11:58)
[2018-03-17 11:59] LABS: ANISOCYTOSIS 1+; BANDS 2 % (< 11); LYMPHOCYTES 17 % (16-52); MONOCYTES 3 % (0-8); NEUTROPHILS 78 % (35-75); PLATELET ESTIMATE NORMAL (NORMAL)
[2018-03-17 12:00] LABS: ALBUMIN 2.1 GM/DL (3.2-5.2); ALKALINE PHOSPHATASE 153 U/L (45-117); ALT/SGPT 220 U/L (12-78); AMYLASE 27 U/L (25-115); ANION GAP 36 MEQ/L (8-16); AST/SGOT 729 U/L (7-37); BILIRUBIN,DIRECT 2.4 MG/DL (0.0-0.2); BILIRUBIN,TOTAL 2.7 MG/DL (0.2-1.0); BLOOD UREA NITROGEN 32 MG/DL (7-18); CALCIUM LEVEL 9.4 MG/DL (8.5-10.1); CARBON DIOXIDE LEVEL 10 MEQ/L (21-32); CHLORIDE LEVEL 92 MEQ/L (98-107); CPK CREATINE PHOSPHOKINASE 94 U/L (39-308); CREATININE FOR GFR 3.39 MG/DL (0.70-1.30); GLOMERULAR FILTRATION RATE 20.8 (>60); GLUCOSE, FASTING 27 MG/DL (70-100); LIPASE 306 U/L (73-393); MB/CK RELATIVE INDEX 2.45 (< OR =4); POTASSIUM SERUM 3.2 MEQ/L (3.5-5.1); SODIUM LEVEL 138 MEQ/L (136-145); TOTAL PROTEIN 5.6 GM/DL (6.4-8.2); TROPONIN I < 0.02 NG/ML (< 0.10)
[2018-03-17] MEDS ORDERED: D5W/0.45% SODIUM CHLORIDE 1,000 ML IV (12:00)
[2018-03-17] MEDS: DEXTROSE 50% 50 ML SYRINGE IV ×3 (12:05→17:46)
[2018-03-17] MEDS ORDERED: cefTRIAXone SOD 1 GM VIAL (J0696) As Ordered (12:18)
[2018-03-17] MEDS: cefTRIAXone SOD 1 GM in D5W MINI-BAG PLUS 50 ML IV (12:21)
[2018-03-17 12:25] LABS: INR 2.81; PROTHROMBIN TIME 30.2 SECONDS (12.1-14.4)
[2018-03-17 12:26] LABS: PARTIAL THROMBOPLASTIN TIME 43.7 SECONDS (25.4-37.6)
[2018-03-17 12:28] LABS: LACTIC ACID SEPSIS PROTOCOL 20.3 MMOL/L (0.4-2.0)
[2018-03-17 12:30] LABS: ABG BASE EXCESS -21.6 (-2.0-2.0); ABG HCO3 7.4 MEQ/L (22.0-26.0); ABG O2 SATURATION 64.4 % (95.0-99.0); ABG PARTIAL PRESSURE CO2 27.7 mmHg (35.0-45.0); ABG PARTIAL PRESSURE O2 55.4 mmHg (75.0-100.0); ABG TOTAL CO2 8.3 MEQ/L (22.0-29.0)
[2018-03-17 12:34] LABS: ABG pH (ARTERIAL) 7.046 UNITS (7.350-7.450)
[2018-03-17] MEDS: SODIUM BICARBONATE 8.4% INJ 50 ML SYRINGE IV ×4 (12:40→17:41)
[2018-03-17 12:50] LABS: BEDSIDE GLUCOSE 138 MG/DL (70-105)
[2018-03-17] MEDS: D5W 1,000 ML IV (13:31)
[2018-03-17 13:46] LABS: PH BODY FLUID 6.812 UNITS (NOT ESTABLISHED); SOURCE, BODY FLUID pH PLEURAL
[2018-03-17 13:55] LABS: BF MONONUCLEAR CELL % 9.9 % (0-0); BF POLYMORPHONUCLEAR CELL % 90.1 % (0-0); RBC BODY FLUID 9 10^3/uL (<2)
[2018-03-17 13:58] LABS: ABG BASE EXCESS -23.3 (-2.0-2.0); ABG O2 SATURATION 96.6 % (95.0-99.0); ABG PARTIAL PRESSURE O2 128.8 mmHg (75.0-100.0); ABG STANDARD HCO3 7.7 MEQ/L (22.0-26.0); ABG TOTAL CO2 5.5 MEQ/L (22.0-29.0)
[2018-03-17 13:59] LABS: ABG PARTIAL PRESSURE CO2 17.5 mmHg (35.0-45.0); ABG pH (ARTERIAL) 7.071 UNITS (7.350-7.450)
[2018-03-17 14:01] LABS: APPEARANCE, BODY FLUID TURBID (CLEAR); PLEURAL FL COLOR YELLOW (COLORLESS); SOURCE, BODY FLUID PLEURAL
[2018-03-17 14:02] LABS: BF DIFF IF INDICATED? YES (NO); WBC BODY FLUID 52160 /uL (0-10)
[2018-03-17 14:30] LABS: BEDSIDE GLUCOSE 103 MG/DL (70-105)
[2018-03-17 14:34] LABS: BEDSIDE GLUCOSE 51 MG/DL (70-105)
[2018-03-17 14:34] LABS: AMYLASE, BODY FLUID 21 U/L (NOT ESTABLISHED); LDH, BODY FLUID 2019 U/L (NOT ESTABLISHED); SOURCE, BODY FLUID AMYLASE PLEURAL; SOURCE, BODY FLUID GLUCOSE PLEURAL; SOURCE, BODY FLUID LDH PLEURAL; SOURCE, BODY FLUID TOT PROTEIN PLEURAL; TOTAL PROTEIN, BODY FLUID 3.8 G/DL (NOT ESTABLISHED)
[2018-03-17] MEDS ORDERED: GLUCOSE 4 GM CHEW TABLET PO (15:00)
[2018-03-17] MEDS ORDERED: GLUCAGON FOR INJ 1 MG VIAL (J1610) SC (15:00)
[2018-03-17 15:24] LABS: TYPE AND SCREEN 1
[2018-03-17 15:51] LABS: BEDSIDE GLUCOSE 72 MG/DL (70-105)
[2018-03-17] MEDS ORDERED: NOREPINEPHRINE 4 MG/4 ML AMP As Ordered (15:51)
[2018-03-17] MEDS ORDERED: LIDOCAINE 1% MDV 20ML VIAL As Ordered (15:52)
[2018-03-17] MEDS: SODIUM BICARBONATE 150 MEQ in D5W 1,000 ML IV ×2 (15:57→23:12)
[2018-03-17] MEDS ORDERED: ETOMIDATE INJ 20MG/10ML VIAL As Ordered (17:05)
[2018-03-17] MEDS ORDERED: PROPOFOL 1,000 MG/100 ML VIAL As Ordered (17:05)
[2018-03-17] MEDS ORDERED: fentaNYL 100 MCG/2 ML INJECTION (J3010) As Ordered (17:05)
[2018-03-17] MEDS: NOREPINEPHRINE BITARTRATE 8 MG in D5W 492 ML IV ×2 (17:20→22:59)
[2018-03-17 17:32] LABS: VENOUS BASE EXCESS -23.3 (-2.0-2.0); VENOUS HCO3 6.2 MEQ/L (23.0-27.0); VENOUS O2 SATURATION 96.9 % (60.0-80.0); VENOUS PARTIAL PRESSURE CO2 25.1 mmHg (38.0-50.0); VENOUS PARTIAL PRESSURE O2 139.8 mmHg (30.0-50.0); VENOUS PH 7.012 UNITS (7.330-7.430); VENOUS STANDARD HCO3 7.5 MEQ/L
[2018-03-17] MEDS: fentaNYL 100 MCG/2 ML INJECTION (J3010) IV ×2 (17:33→17:44)
[2018-03-17] MEDS: MIDAZOLAM INJ 2 MG/2 ML VIAL (J2250) IV ×2 (17:34→22:59)
[2018-03-17] MEDS: PROPOFOL 1,000 MG in APPROPRIATE DILUENT 1 EA IV ×2 (17:37→23:13)
[2018-03-17] MEDS ORDERED: VASOPRESSIN INJ 20 UNITS in NS 499 ML IV ×2 (17:38→17:41)
[2018-03-17 17:44] LABS: BEDSIDE GLUCOSE 59 MG/DL (70-105)
[2018-03-17] MEDS: ETOMIDATE INJ 20MG/10ML VIAL IV (17:55)
[2018-03-17] MEDS: VASOPRESSIN INJ 20 UNITS in NS 499 ML IV (17:56)
[2018-03-17 17:59] LABS: BEDSIDE GLUCOSE 165 MG/DL (70-105)
[2018-03-17] MEDS ORDERED: fentaNYL 100 MCG/2 ML INJECTION (J3010) IV (18:00)
[2018-03-17 18:05] LABS: HEMATOCRIT 29.4 % (42.0-52.0); HEMOGLOBIN 9.1 g/dl (13.5-17.5); MEAN CORPUSCULAR HEMOGLOBIN 34.6 pg (27.0-33.0); MEAN CORPUSCULAR VOLUME 111.8 fl (80.0-96.0); PLATELET COUNT, AUTOMATED 173 10^3/uL (150-450); RED BLOOD COUNT 2.63 10^6/uL (4.30-6.10); RED CELL DISTRIBUTION WIDTH 20.2 % (11.5-14.5); WHITE BLOOD COUNT 15.1 10^3/uL (4.0-10.0)
[2018-03-17 18:37] LABS: TYPE AND SCREEN 1
[2018-03-17 19:00] LABS: LACTIC ACID SEPSIS PROTOCOL 23.7 MMOL/L (0.4-2.0)
[2018-03-17] MEDS ORDERED: SODIUM CHLORIDE 0.9% INJ 10 ML SYR IV (19:00)
[2018-03-17] MEDS: fentaNYL CITRATE 1,000 MCG in NS 80 ML IV (19:09)
[2018-03-17 19:13] LABS: BEDSIDE GLUCOSE 135 MG/DL (70-105)
[2018-03-17] MEDS: IPRATROPIUM 0.5MG/ALBUTEROL 2.5MG INH SOL UD 3ML (DUONEB)(J7620) NEB (20:00)
[2018-03-17 21:13] LABS: ABG HCO3 7.3 MEQ/L (22.0-26.0); ABG PARTIAL PRESSURE CO2 22.1 mmHg (35.0-45.0); ABG STANDARD HCO3 9.2 MEQ/L (22.0-26.0); ABG pH (ARTERIAL) 7.137 UNITS (7.350-7.450)
[2018-03-17] MEDS: MEROPENEM INJ 500 MG in APPROPRIATE DILUENT 1 EA IV (21:42)
[2018-03-17 21:55] LABS: BEDSIDE GLUCOSE 165 MG/DL (70-105)
[2018-03-17 23:13] LABS: IONIZED CALCIUM 3.9 MG/DL (4.5-5.3)
[2018-03-17 23:38] LABS: ANION GAP 32 MEQ/L (8-16); BLOOD UREA NITROGEN 29 MG/DL (7-18); CALCIUM LEVEL 7.7 MG/DL (8.5-10.1); CARBON DIOXIDE LEVEL 11 MEQ/L (21-32); CHLORIDE LEVEL 94 MEQ/L (98-107); CREATININE FOR GFR 3.03 MG/DL (0.70-1.30); GLOMERULAR FILTRATION RATE 23.7 (>60); GLUCOSE, FASTING 154 MG/DL (70-100); MAGNESIUM LEVEL 1.9 MG/DL (1.8-2.4); POTASSIUM SERUM 3.6 MEQ/L (3.5-5.1); SODIUM LEVEL 137 MEQ/L (136-145)
[2018-03-18 00:30] LABS: TYPE AND SCREEN 1
[2018-03-18] MEDS: MIDAZOLAM INJ 2 MG/2 ML VIAL (J2250) IV ×2 (01:10→06:40)
[2018-03-18] MEDS ORDERED: VASOPRESSIN INJ 20 UNITS/ML VIAL As Ordered (01:39)
[2018-03-18] MEDS: VASOPRESSIN INJ 20 UNITS in NS 499 ML IV (01:46)
[2018-03-18] MEDS: NOREPINEPHRINE BITARTRATE 8 MG in D5W 492 ML IV (02:35)
[2018-03-18 03:06] LABS: IONIZED CALCIUM 3.8 MG/DL (4.5-5.3)
[2018-03-18 03:07] LABS: HEMATOCRIT 26.2 % (42.0-52.0); MEAN CORPUSCULAR HEMOGLOBIN 34.9 pg (27.0-33.0); MEAN CORPUSCULAR HGB CONC 30.5 g/dl (32.0-36.5); PLATELET COUNT, AUTOMATED 127 10^3/uL (150-450); RED BLOOD COUNT 2.29 10^6/uL (4.30-6.10); RED CELL DISTRIBUTION WIDTH 21.3 % (11.5-14.5); WHITE BLOOD COUNT 14.2 10^3/uL (4.0-10.0)
[2018-03-18] MEDS ORDERED: LIDOCAINE 1% MDV 20ML VIAL As Ordered ×2 (03:11)
[2018-03-18 03:13] LABS: POSITIVE MORPH POS FLAG
[2018-03-18 03:14] LABS: MEAN CORPUSCULAR VOLUME 114.4 fl (80.0-96.0)
[2018-03-18 03:28] LABS: ANION GAP 30 MEQ/L (8-16); BLOOD UREA NITROGEN 26 MG/DL (7-18); CALCIUM LEVEL 7.3 MG/DL (8.5-10.1); CARBON DIOXIDE LEVEL 13 MEQ/L (21-32); CHLORIDE LEVEL 95 MEQ/L (98-107); CREATININE FOR GFR 2.91 MG/DL (0.70-1.30); GLOMERULAR FILTRATION RATE 24.9 (>60); GLUCOSE, FASTING 161 MG/DL (70-100); MAGNESIUM LEVEL 1.8 MG/DL (1.8-2.4); POTASSIUM SERUM 3.6 MEQ/L (3.5-5.1); SODIUM LEVEL 138 MEQ/L (136-145)
[2018-03-18] MEDS ORDERED: NOREPINEPHRINE BITARTRATE 8 MG in D5W 492 ML IV (04:00)
[2018-03-18] MEDS: FOLIC ACID 1 MG in NS 50 ML IV (04:40)
[2018-03-18] MEDS: MAG SULF 1GM/100ML (MAG RUN) 1 GM in APPROPRIATE DILUENT 1 EA IV (04:48)
[2018-03-18] MEDS: PROPOFOL 1,000 MG in APPROPRIATE DILUENT 1 EA IV ×2 (05:00→12:21)
[2018-03-18] MEDS: HEPARIN 1,000 UNITS/ML 10ML VIAL (FOR RADIOLOGY& DIALYSIS ONLY) IV (05:28)
[2018-03-18] MEDS: SODIUM BICARBONATE 150 MEQ in D5W 1,000 ML IV ×2 (05:48→12:31)
[2018-03-18] MEDS: VASOPRESSIN INJ 40 UNITS in NS 498 ML IV (05:51)
[2018-03-18 05:53] LABS: ABG BASE EXCESS -15.4 (-2.0-2.0); ABG HCO3 12.7 MEQ/L (22.0-26.0); ABG PARTIAL PRESSURE CO2 39.1 mmHg (35.0-45.0); ABG PARTIAL PRESSURE O2 73.2 mmHg (75.0-100.0); ABG STANDARD HCO3 12.3 MEQ/L (22.0-26.0); ABG TOTAL CO2 13.9 MEQ/L (22.0-29.0)
[2018-03-18 05:57] LABS: ABG pH (ARTERIAL) 7.129 UNITS (7.350-7.450)
[2018-03-18] MEDS: NOREPINEPHRINE BITARTRATE 16 MG in D5W 484 ML IV (06:00)
[2018-03-18] MEDS: CALCIUM GLUCONATE 1,000 MG in NS 100 ML IV ×2 (06:07→07:44)
[2018-03-18] MEDS: KCL 20MEQ IN 100ML SWI (KRUN) 20 MEQ in APPROPRIATE DILUENT 1 EA IV ×2 (06:19→07:44)
[2018-03-18 07:37] LABS: LACTIC ACID SEPSIS PROTOCOL 17.5 MMOL/L (0.4-2.0)
[2018-03-18] MEDS: IPRATROPIUM 0.5MG/ALBUTEROL 2.5MG INH SOL UD 3ML (DUONEB)(J7620) NEB ×2 (08:13→12:19)
[2018-03-18] MEDS: PANTOPRAZOLE 40MG INJ (PROTONIX) (C9113) IV (09:01)
[2018-03-18] MEDS: VANCOMYCIN HCL 1,000 MG, VIAL MATE ADAPTER 1 EACH in D5W 250 ML IV (09:01)
[2018-03-18] MEDS: THIAMINE HCL 200 MG/2 ML VIAL (J3411) IM (09:01)
[2018-03-18] MEDS: MEROPENEM INJ 500 MG in APPROPRIATE DILUENT 1 EA IV (10:18)
[2018-03-18] MEDS: OCTREOTIDE ACETATE 1,200 MCG in NS 238.8 ML IV (10:18)
[2018-03-18] MEDS: CISATRACURIUM 2MG/ML 5ML VIAL IV (10:19)
[2018-03-18 10:28] LABS: ALBUMIN 2.2 GM/DL (3.2-5.2); ALBUMIN/GLOBULIN RATIO 0.67 (1.00-1.93); ALKALINE PHOSPHATASE 352 U/L (45-117); ALT/SGPT 2435 U/L (12-78); AST/SGOT 14847 U/L (7-37); BILIRUBIN,DIRECT 2.7 MG/DL (0.0-0.2); BILIRUBIN,TOTAL 3.4 MG/DL (0.2-1.0); TOTAL PROTEIN 5.5 GM/DL (6.4-8.2)
[2018-03-18] MEDS ORDERED: cefTRIAXone SOD 1 GM in D5W MINI-BAG PLUS 50 ML IV (12:00)
[2018-03-18 12:47] LABS: INR 3.07; PROTHROMBIN TIME 32.4 SECONDS (12.1-14.4)
== END 2018-03-18 12:54 | disposition expired | DRG 720 ==
LOC: M ED 10:51 → M ED INP 13:41 → M ICU 13:58
PROC: 0W9900Z Drainage of Right Pleural Cavity with Drainage Device, Open Approach (ICD-10-PCS; principal; 2018-03-17)
PROC: 02HV33Z Insertion of Infusion Device into Superior Vena Cava, Percutaneous Approach (ICD-10-PCS; 2018-03-17)
PROC: 0BH17EZ Insertion of Endotracheal Airway into Trachea, Via Natural or Artificial Opening (ICD-10-PCS; 2018-03-17)
PROC: 06HM33Z Insertion of Infusion Device into Right Femoral Vein, Percutaneous Approach (ICD-10-PCS; 2018-03-17)
PROC: 5A1935Z Respiratory Ventilation, Less than 24 Consecutive Hours (ICD-10-PCS; 2018-03-17)
PROC: 30233N1 Transfusion of Nonautologous Red Blood Cells into Peripheral Vein, Percutaneous Approach (ICD-10-PCS; 2018-03-17)
PROC: 30233K1 Transfusion of Nonautologous Frozen Plasma into Peripheral Vein, Percutaneous Approach (ICD-10-PCS; 2018-03-17)
PROC: 0W9900Z Drainage of Right Pleural Cavity with Drainage Device, Open Approach (ICD-10-PCS; 2018-03-18)
DX: A41.9 Sepsis, unspecified organism (principal); J96.01 Acute respiratory failure with hypoxia; K72.00 Acute and subacute hepatic failure without coma; I82.0 Budd-Chiari syndrome; R65.21 Severe sepsis with septic shock; D68.4 Acquired coagulation factor deficiency; J90 Pleural effusion, not elsewhere classified; Z51.5 Encounter for palliative care; Z66 Do not resuscitate; N17.9 Acute kidney failure, unspecified; E87.4 Mixed disorder of acid-base balance; K92.2 Gastrointestinal hemorrhage, unspecified; K70.10 Alcoholic hepatitis without ascites; K76.7 Hepatorenal syndrome; J93.83 Other pneumothorax; I10 Essential (primary) hypertension; E78.5 Hyperlipidemia, unspecified; J30.9 Allergic rhinitis, unspecified; F17.210 Nicotine dependence, cigarettes, uncomplicated; F10.10 Alcohol abuse, uncomplicated; Z79.899 Other long term (current) drug therapy; Z79.1 Long term (current) use of non-steroidal anti-inflammatories (NSAID)